=== PATIENT | female | born 1980 | race Caucasian/White ===

== ENCOUNTER 2016-07-13 18:44 | Emergency (ER) | payer OTHER ==
[~2016-07-13] VITALS: Ht 157.5 cm; Wt 59.0 kg
[2016-07-13] MEDS ORDERED: KETOROLAC 60 MG/2 ML VIAL (J1885) IM ONE (19:45)
[2016-07-13 20:09] LABS: BASO # 0.1 K/mm3 (0.0-0.2); BASO % 0.7 % (0.0-1.0); EOS # 0.3 K/mm3 (0.0-0.50); EOS % 3.6 % (0.0-3.0); LARGE UNSTAINED CELL # 0.1 K/mm3 (0.0-0.4); LARGE UNSTAINED CELL % 1.8 % (0.0-4.0); LYMPH # 3.5 K/mm3 (1.5-4.5); LYMPH % 42.2 % (24.0-44.0); MEAN CORPUSCULAR HEMOGLOBIN 29.3 pg (27.0-33.0); MEAN CORPUSCULAR HGB CONC 32.9 g/dl (32.0-36.5); MEAN CORPUSCULAR VOLUME 88.9 fl (80.0-96.0); MONO # 0.3 K/mm3 (0.0-0.8); MONO % 4.1 % (0.0-5.0); NEUTROPHILS # 3.8 K/mm3 (1.8-7.7); NEUTROPHILS % 47.5 % (36.0-66.0); PLATELET COUNT, AUTOMATED 246 k/mm3 (150-450); RED CELL DISTRIBUTION WIDTH 14.6 % (11.5-14.5); WHITE BLOOD COUNT 7.9 K/mm3 (4.0-10.0)
[2016-07-13 20:34] LABS: CONTROL LINE HCG INT CTR LINE PRESENT
[2016-07-13] MEDS ORDERED: NORCO, ANEXSIA 5/325MG TABLET (HYDROcodone/ACETAMINOPHEN) PO ONE (21:15)
[2016-07-13 21:23] VITALS: BP 114/69
== END 2016-07-13 21:26 | disposition home or self-care (01) ==
LOC: M ED 19:41
DX: N94.6 Dysmenorrhea, unspecified (principal); N80.9 Endometriosis, unspecified; F17.210 Nicotine dependence, cigarettes, uncomplicated
CPT/HCPCS: 36415; 84703; 85025; 96372; 99282; J1885

== ENCOUNTER 2016-09-11 00:17 | Emergency (ER) | payer OTHER ==
[~2016-09-11] VITALS: Ht 157.5 cm; Wt 58.2 kg
[2016-09-11] MEDS ORDERED: PERCOCET 5MG/325MG TAB PO ONE (04:30)
[2016-09-11 04:42] VITALS: BP 114/84
--- NOTE | 2016-09-11 07:40 | REP ---
Clinical: Trauma. Technique: AP, lateral, bilateral oblique views right foot . Findings: The osseous structures and joint spaces are intact and normal. There is no evidence for acute fracture or dislocation. Surrounding soft tissues are unremarkable. No subcutaneous emphysema or radiodense foreign body. Impression: Age appropriate examination . No acute fracture or dislocation. Signed by Myron Mccullough MD 09/11/2016 07:32 A
[2016-10-18] MEDS ORDERED: IBUP200C10 PO (13:51)
== END 2016-09-11 04:44 | disposition home or self-care (01) ==
LOC: M ED 01:34
DX: S90.31XA Contusion of right foot, initial encounter (principal); V03.10XA Pedestrian on foot injured in collision with car, pick-up truck or van in traffic accident, initial encounter; Y92.410 Unspecified street and highway as the place of occurrence of the external cause; Y93.01 Activity, walking, marching and hiking; Y99.9 Unspecified external cause status

== ENCOUNTER 2016-10-23 05:58 | Inpatient (IN) | payer OTHER ==
[2016-10-23] VITALS (7 sets, daily range): BP systolic 96–113; BP diastolic 60–73
[~2016-10-23] VITALS: Ht 157.5 cm; Wt 59.4 kg
[~2016-10-23 05:58] MED LIST: IBUP200C10 PO
[2016-10-23] MEDS ORDERED: LR 1,000 ML IV SCH (06:15)
[2016-10-23 06:27] LABS: MEAN CORPUSCULAR HEMOGLOBIN 29.4 pg (27.0-33.0); MEAN CORPUSCULAR HGB CONC 33.5 g/dl (32.0-36.5); MEAN CORPUSCULAR VOLUME 87.7 fl (80.0-96.0); WHITE BLOOD COUNT 11.1 K/mm3 (4.0-10.0)
[2016-10-23 06:46] LABS: CONTROL LINE HCG INT CTR LINE PRESENT
[2016-10-23] MEDS ORDERED: BUPIVACAINE HCL 0.5% 30 ML VIAL As Ordered ONE ×2 (07:13→10:15)
[2016-10-23] MEDS ORDERED: fentaNYL 250 MCG/5 ML INJECTION (J3010) As Ordered ONE (07:17)
[2016-10-23] MEDS ORDERED: MIDAZOLAM INJ 2 MG/2 ML VIAL (J2250) As Ordered ONE (07:18)
[2016-10-23] MEDS ORDERED: dexameTHASONE 4 MG/ML 1ML VIAL (J1100) As Ordered ONE (09:34)
[2016-10-23] MEDS ORDERED: PROPOFOL 200 MG/20 ML VIAL As Ordered ONE (09:34)
[2016-10-23] MEDS ORDERED: KETOROLAC 60 MG/2 ML VIAL (J1885) As Ordered ONE (09:34)
[2016-10-23] MEDS ORDERED: ONDANSETRON 4MG/2ML VIAL (J2405) As Ordered ONE (09:34)
[2016-10-23] MEDS ORDERED: LIDOCAINE 2% INJ 100 MG/5 ML SDV (FOR ANES.) As Ordered ONE (09:34)
[2016-10-23] MEDS ORDERED: GLYCOPYRROLATE INJ 0.2 MG/ML 2 ML VIAL As Ordered ONE (09:34)
[2016-10-23] MEDS ORDERED: NEOSTIGMINE 1MG/ML 5 ML SYRINGE (J2710) As Ordered ONE (09:34)
[2016-10-23] MEDS ORDERED: ROCURONIUM BROMIDE 50 MG/5 ML VIAL/SYRINGE As Ordered ONE (09:34)
[2016-10-23] MEDS ORDERED: PERCOCET 5MG/325MG TAB PO PRN ×2 (13:00→13:30)
[2016-10-23] MEDS ORDERED: ONDANSETRON 4MG/2ML VIAL (J2405) IV PRN ×2 (13:00→13:30)
[2016-10-23] MEDS ORDERED: fentaNYL 100 MCG/2 ML INJECTION (J3010) As Ordered ONE (13:11)
[2016-10-23] MEDS: fentaNYL 100 MCG/2 ML INJECTION (J3010) IV PRN ×2 (13:15→13:21)
[2016-10-23] MEDS: LR 1,000 ML IV SCH ×2 (14:35→21:12)
[2016-10-23] MEDS: KETOROLAC 30 MG/ML VIAL (J1885) IV SCH ×2 (14:53→19:02)
[2016-10-23] MEDS: DOCUSATE SODIUM 100 MG CAP PO SCH ×2 (14:53→21:12)
[2016-10-23] MEDS: NICOTINE 21MG/24HR 1 EA TRANSDERMAL TD SCH (19:02)
[2016-10-23] MEDS: PERCOCET 5MG/325MG TAB PO PRN (21:38)
[2016-10-24] VITALS: BP 91/54
[2016-10-24] MEDS: KETOROLAC 30 MG/ML VIAL (J1885) IV SCH ×2 (01:06→06:48)
[2016-10-24 04:00] VITALS: BP 92/62
[2016-10-24] MEDS: PERCOCET 5MG/325MG TAB PO PRN ×4 (04:35→17:38)
[2016-10-24] MEDS: LR 1,000 ML IV SCH ×2 (05:00→13:02)
[2016-10-24 07:51] LABS: MEAN CORPUSCULAR HEMOGLOBIN 29.7 pg (27.0-33.0); MEAN CORPUSCULAR HGB CONC 33.3 g/dl (32.0-36.5); MEAN CORPUSCULAR VOLUME 89.3 fl (80.0-96.0); PLATELET COUNT, AUTOMATED 163 k/mm3 (150-450); RED CELL DISTRIBUTION WIDTH 14.9 % (11.5-14.5); WHITE BLOOD COUNT 9.1 K/mm3 (4.0-10.0)
[2016-10-24 07:57] LABS: ADD MANUAL DIFFER YES; DIFF SLIDE NUMBER 92
[2016-10-24 08:00] VITALS: BP 110/70
[2016-10-24 08:13] LABS: EOSINOPHILS 2 % (0-5)
[2016-10-24] MEDS: NICOTINE 21MG/24HR 1 EA TRANSDERMAL TD SCH (08:36)
[2016-10-24] MEDS: DOCUSATE SODIUM 100 MG CAP PO SCH (08:36)
[2016-10-24 12:00] VITALS: BP 93/61
[2016-10-24] MEDS ORDERED: IBUPROFEN 800 MG TAB PO SCH (15:00)
[2016-10-24 16:00] VITALS: BP 114/73
--- NOTE | 2016-10-24 19:00 | DS.PDOC ---
Discharge Summary General Date of Admission Oct 23, 2016 at 05:58 Date of Discharge [id number] Discharge Summary PROCEDURES PERFORMED DURING STAY: Total laparoscopic hysterectomy, bilateral salpingectomy, cystoscopy ADMITTING DIAGNOSIS: 1. Dysmenorrhea, menorrhagia DISCHARGE DIAGNOSES: 1. as above HOSPITAL COURSE: Admitted for procedures as above. Uncomplicated, see op note. DISCHARGE MEDICATIONS: Motrin, Percocet, Colace Physical exam: see prog note LABORATORY DATA: Please see below. ACTIVITY: as tolerated. Nothing in vagina for 12 weeks, no heavy lifting for 6 weeks, no bathing for 4 weeks. DIET: regular DISPOSITION:stable TIME SPENT ON DISCHARGE: Greater than 15 minutes. Sessions Vital Signs/I&Os Vital Signs Date Time Temp Pulse Resp B/P (MAP) Pulse Ox O2 Delivery O2 Flow Rate FiO2 10/24/16 17:38 18 10/24/16 16:00 98.0 74 114/73 (87) 98 Room Air 10/24/16 04:00 2.0 I&O- Last 24 Hours up to 6 AM 10/24/16 06:00 Intake Total 3050 ml Output Total 2700 ml Balance 350 ml Laboratory Data Labs 24H Laboratory Tests 2 10/24/16 07:07: Neutrophils 60, Lymphocytes (Manual) 38, Eosinophils (Manual) 2, Platelet Estimate NORMAL CBC/BMP Laboratory Tests 10/24/16 07:07 Red Blood Count 3.28 L, Mean Corpuscular Volume 89.3, Mean Corpuscular Hemoglobin 29.7, Mean Corpuscular Hemoglobin Concent 33.3, Red Cell Distribution Width 14.9 H Discharge Medications Scheduled PRN Ibuprofen (Ibuprofen) 200 Mg Cap, 800 MG PO Q8HP PRN for PAIN, (Reported) Allergies Coded Allergies: No Known Allergies (Unverified , 07/13/16) SESSIONSPATRICIA MD Oct 24, 2016 19:00
--- NOTE | 2016-10-24 19:03 | IPNPDOC ---
Text Note Date of Service The patient was seen on 10/24/16. NOTE Tried to see pt this AM, was asleep. Pt states pain controlled, desires to go home, no complaints. Small amt vag spotting earlier. No CP/LP/SOB. Ambulatory, eating. [employer] CDI Ext no CCE This AM HCT 29.3, PLT 162 a/p: Doing well. D/C lines and d/c to home. Sessions Vivian HOFFMANN, I+O VSVivian I+O Laboratory Tests 10/24/16 07:07 Red Blood Count 3.28 L, Mean Corpuscular Volume 89.3, Mean Corpuscular Hemoglobin 29.7, Mean Corpuscular Hemoglobin Concent 33.3, Red Cell Distribution Width 14.9 H Vital Signs Date Time Temp Pulse Resp B/P (MAP) Pulse Ox O2 Delivery O2 Flow Rate FiO2 10/24/16 17:38 18 10/24/16 16:00 98.0 74 114/73 (87) 98 Room Air 10/24/16 04:00 2.0 I&O- Last 24 Hours up to 6 AM 10/24/16 06:00 Intake Total 3050 ml Output Total 2700 ml Balance 350 ml SESSIONS,PATRICIA Rivera MD Oct 24, 2016 19:02
[2016-10-24] MEDS ORDERED: OXYC1TAB23 PO ×2 (19:42→19:43)
[2016-10-24] MEDS ORDERED: COLA100C5 PO (19:43)
[2016-10-24 20:00] VITALS: BP 116/59
--- NOTE | 2016-10-25 13:56 | RO ---
DATE OF PROCEDURE: 10/23/2016 PREPROCEDURE DIAGNOSES: Symptomatic uterus with menorrhagia and dysmenorrhea. POSTPROCEDURE DIAGNOSES: Symptomatic uterus with menorrhagia and dysmenorrhea. PROCEDURE: PREOPERATIVE ANTIBIOTICS: Ancef 2 grams IV SURGEON: Tamir Gaona MD AUTO CLEANER: Dr. Ayoub FINDINGS: Slightly enlarged uterus, irritated and injected, normal ovaries and tubes, minor scar tissue from prior section times two. ANESTHESIA: General endotracheal. ESTIMATED BLOOD LOSS: 100 mL. DRAINS: 600 mL of clear urine in the Dunlap catheter. FLUIDS REPLACED: 1500 mL of lactated Ringers. SPECIMENS: Bilateral tubes, cervix, uterus. INDICATION: Please see preoperative diagnosis. DESCRIPTION OF PROCEDURE: The patient was taken to the operating room with an IV in place after her type and screen was found to have positive antibodies for Angelique. We confirmed with the blood bank that they did in fact have blood that was compatible should we need to transfuse the patient, either intra or postoperatively. Informed consent had previously been obtained in the clinic after several visits. The patient had an uncomplicated induction of anesthesia and was placed in the low lithotomy position without difficulty by myself. Examination under anesthesia was then performed. She was then prepped and draped in the normal sterile fashion and I placed a speculum into the vagina, isolating the cervix, grasped the anterior lip of the cervix with the tenaculum, placed a figure of eight suture at the anterior lip, passed the suture ends through the green cervical cup of the VCare uterine manipulator. Advanced the VCare uterine manipulator to the fundus and insufflated the bulb and removed the speculum. The green cervical cup from the VCare was then advanced to completely encompass the cervix. The blue cup behind the green cup was tightened in place. I then changed my gloves and turned my attention to the lower abdomen. The patient was flattened out and brought down to waist level. I injected a few mL of 0.5% Marcaine with no epinephrine just under the umbilicus and placed a 5 mm Optiview Trocar directly into the abdomen under direct visualization. Intraperitoneal placement was easily confirmed with low flow carbon dioxide insufflation. The patient was placed in Trendelenburg and high flow CO2 was started. Using the VCare uterine manipulator, a thorough lower abdominal and upper abdominal survey was performed and all was normal other than findings as described above. We placed the left lower quadrant and right lower quadrant 5 mm trocars in the exact same manner only this time under direct visualization with camera. The patient had a tubal ligation with her prior deliveries. Therefore, the distal part of the fallopian tube was elevated and transected using the LigaSure. Each fallopian tube was placed into the anterior cul-de- sac. We then cauterized with LigaSure just underneath the proximal portion of the left sided fallopian tube to the side of the uterus and then down the utero-ovarian ligament down to the layer of the cervical cup on the uterine manipulator. This was repeated on the patient's right in exactly the same fashion. There was never a significant amount of bleeding, although a few small serosal bleeds and one arterial bleed was noted, but easily addressed. Using the Harmonic scalpel we then went from left side to the right side and created a bladder flap without difficulty. At this point, a colpotomy on the left side was created with Harmonic scalpel and we were able to find the green cervical cup. Most of the left vaginal attachment was transected around the cervix, at which point we began to lose insufflation so a Surgilube covered glove with a blue towel stuffed inside was placed into the vagina to maintain our pneumoperitoneum. We then switched to the opposite side and the rest of the anterior right sided and posterior colpotomy was performed. The uterus was then removed intact through the vaginal incision with the uterine manipulator still attached. With the patient maintained in Trendelenburg and the use of a sponge stick and right angle retractor and weighted speculum, I was able to identify the vaginal cuff completely and with a running suture of #0 Vicryl in a locked fashion from right to midline and then with the second suture from the left to the midline, the vaginal cuff was closed without difficulty. Sutures were joined in the midline. A small amount of cautery was used to prevent future granulation. There was excellent union of the vaginal cuff edges across the closure. The abdomen was reinsufflated by my partner, Dr. Ayoub, and she inspected the vaginal cuff and found it to be hemostatic and in good shape. We identified bilateral ureters and watched them vermiculate bilaterally. Camera was then changed and I placed the cystoscope into the bladder, insufflated with approximately 200 mL and then watched as both ureteral orifices contracted and injected urine into the bladder. Normal bladder dome bubble was noted. There was never fear of a cystotomy and there was no evidence of a ureteral injury. All instruments were removed from the vagina. All trocars were removed from the abdominal wall after as much desufflation of the CO2 gas was able to escape was possible. The patient was awakened from her surgery in stable condition. All counts of instruments, needles and sponges were correct at the end of the case. FRANCISCO
== END 2016-10-24 20:10 | disposition home or self-care (01) | DRG 743 ==
LOC: M OR 05:58 → M PED 14:22
PROVIDERS: ADMIT Obstetrics & Gynecology; ATTEND Obstetrics & Gynecology
PROC: 0UTC8ZZ Resection of Cervix, Via Natural or Artificial Opening Endoscopic (ICD-10-PCS; 2016-10-23)
PROC: 0UT7FZZ Resection of Bilateral Fallopian Tubes, Via Natural or Artificial Opening With Percutaneous Endoscopic Assistance (ICD-10-PCS; 2016-10-23)
PROC: 0UT9FZZ Resection of Uterus, Via Natural or Artificial Opening With Percutaneous Endoscopic Assistance (ICD-10-PCS; principal; 2016-10-23 07:30)
DX: N94.6 Dysmenorrhea, unspecified (principal); N92.0 Excessive and frequent menstruation with regular cycle; Z98.51 Tubal ligation status

== ENCOUNTER 2016-10-28 15:13 | Emergency (ER) | payer OTHER ==
[~2016-10-28] VITALS: Ht 157.5 cm; Wt 58.7 kg
[~2016-10-28 15:13] MED LIST changes: +COLA100C5 PO; +OXYC1TAB23 PO
[2016-10-28] MEDS ORDERED: NS 1,000 ML IV ONE (16:45)
[2016-10-28] MEDS ORDERED: ONDANSETRON 4MG/2ML VIAL (J2405) IV ONE (16:45)
[2016-10-28] MEDS ORDERED: GASTROGRAFIN SOLUTION 30ML PO ONE (17:05)
[2016-10-28] MEDS ORDERED: GASTROGRAFIN SOLUTION 30ML (Q9963) PO ONE (17:35)
[2016-10-28 17:40] LABS: BASO % 0.3 % (0.0-1.0); EOS # 0.3 K/mm3 (0.0-0.50); EOS % 2.2 % (0.0-3.0); LARGE UNSTAINED CELL # 0.1 K/mm3 (0.0-0.4); LYMPH # 1.5 K/mm3 (1.5-4.5); LYMPH % 12.5 % (24.0-44.0); MEAN CORPUSCULAR HEMOGLOBIN 29.1 pg (27.0-33.0); MEAN CORPUSCULAR HGB CONC 32.9 g/dl (32.0-36.5); MEAN CORPUSCULAR VOLUME 88.5 fl (80.0-96.0); MONO # 0.7 K/mm3 (0.0-0.8); MONO % 6.1 % (0.0-5.0); NEUTROPHILS # 9.3 K/mm3 (1.8-7.7); NEUTROPHILS % 77.8 % (36.0-66.0); PLATELET COUNT, AUTOMATED 253 k/mm3 (150-450); RED CELL DISTRIBUTION WIDTH 14.7 % (11.5-14.5); WHITE BLOOD COUNT 11.9 K/mm3 (4.0-10.0)
[2016-10-28] MEDS: MORPHINE 2 MG/ML 1ML SYRINGE IV PRN ×2 (17:40→18:08)
[2016-10-28 18:04] LABS: ANION GAP 8 MEQ/L (8-16); BLOOD UREA NITROGEN 6 MG/DL (7-18); CALCIUM LEVEL 9.1 MG/DL (8.5-10.1); CARBON DIOXIDE LEVEL 25 MEQ/L (21-32); CHLORIDE LEVEL 109 MEQ/L (98-107); CREATININE FOR GFR 0.61 MG/DL (0.55-1.02); GLOMERULAR FILTRATION RATE > 60.0 (>60); GLUCOSE, FASTING 89 MG/DL (70-105); POTASSIUM SERUM 4.5 MEQ/L (3.5-5.1); SODIUM LEVEL 142 MEQ/L (136-145)
[2016-10-28] MEDS ORDERED: ISOVUE-370 76% 100ML VIAL (Q9967) As Ordered ONE (18:54)
--- NOTE | 2016-10-28 19:30 | REPUSA ---
CT of the abdomen and pelvis with contrast Clinical statement: Pain. Evaluate for abscess. Technique: Multiple axial CT images were obtained from the base of the lungs through the floor of the pelvis utilizing 5 mm axial slices after administration of oral and nonionic intravenous contrast. C oronal and sagittal reconstructions were also obtained. Comparison: None. Findings: Chest: The visualized lung bases are clear. Abdomen: The liver, spleen, pancreas, kidneys, gallbladder, and adrenal glands are unremarkable. The aorta is within normal limits. There is no evidence of abdominal lymphadenopathy or ascites. Pelvis: The bowel is unremarkable, with no obstructive or inflammatory changes. Moderate amount of st ool fills the colon. The urinary bladder is within normal limits. The other pelvic structures appear grossly intact. There is no evidence of pelvic lymphadenopathy or ascites. Bones: There are no suspicious osseous abnormalities seen. Impression: Moderate constipation. Otherwise unremarkable study.
[2016-10-28] MEDS ORDERED: MAGNESIUM CITRATE 300 ML BTL PO ONE (20:30)
[2016-10-28 20:50] VITALS: BP 111/74
== END 2016-10-28 20:54 | disposition home or self-care (01) ==
LOC: M ED 15:13
DX: K59.00 Constipation, unspecified (principal); Z72.0 Tobacco use
CPT/HCPCS: 74177; 80048; 81001; 83605; 85025; 96374; 96375; 99283; J2405; Q9963; Q9967

== ENCOUNTER 2016-10-30 17:14 | Emergency (ER) | payer OTHER ==
[~2016-10-30] VITALS: Ht 157.5 cm; Wt 59.1 kg
[2016-10-30] MEDS ORDERED: TYLE325T5 PO (17:23)
[2016-10-30] MEDS ORDERED: MORPHINE 2 MG/ML 1ML SYRINGE IV PRN (18:15)
[2016-10-30] MEDS ORDERED: NS 1,000 ML IV ONE (18:15)
[2016-10-30] MEDS ORDERED: ONDANSETRON 4MG/2ML VIAL (J2405) IV ONE (18:15)
[2016-10-30 19:04] LABS: BASO % 0.5 % (0.0-1.0); EOS # 0.3 K/mm3 (0.0-0.50); EOS % 3.8 % (0.0-3.0); LARGE UNSTAINED CELL # 0.1 K/mm3 (0.0-0.4); LARGE UNSTAINED CELL % 1.4 % (0.0-4.0); LYMPH # 2.2 K/mm3 (1.5-4.5); LYMPH % 24.9 % (24.0-44.0); MEAN CORPUSCULAR HEMOGLOBIN 29.5 pg (27.0-33.0); MEAN CORPUSCULAR HGB CONC 33.3 g/dl (32.0-36.5); MEAN CORPUSCULAR VOLUME 88.7 fl (80.0-96.0); MONO # 0.5 K/mm3 (0.0-0.8); MONO % 5.6 % (0.0-5.0); NEUTROPHILS # 5.7 K/mm3 (1.8-7.7); NEUTROPHILS % 63.8 % (36.0-66.0); PLATELET COUNT, AUTOMATED 360 k/mm3 (150-450); RED CELL DISTRIBUTION WIDTH 14.1 % (11.5-14.5); WHITE BLOOD COUNT 8.9 K/mm3 (4.0-10.0)
[2016-10-30 19:20] LABS: ALBUMIN 3.9 GM/DL (3.2-5.2); ALBUMIN/GLOBULIN RATIO 1.03 (1.00-1.93); ALKALINE PHOSPHATASE 67 U/L (45-117); ALT/SGPT 17 U/L (12-78); ANION GAP 7 MEQ/L (8-16); AST/SGOT 12 U/L (15-37); BILIRUBIN,DIRECT < 0.1 MG/DL (0.0-0.2); BILIRUBIN,TOTAL 0.2 MG/DL (0.2-1.0); BLOOD UREA NITROGEN 9 MG/DL (7-18); CALCIUM LEVEL 9.2 MG/DL (8.5-10.1); CARBON DIOXIDE LEVEL 27 MEQ/L (21-32); CHLORIDE LEVEL 107 MEQ/L (98-107); GLOMERULAR FILTRATION RATE > 60.0 (>60); GLUCOSE, FASTING 85 MG/DL (70-105); POTASSIUM SERUM 4.6 MEQ/L (3.5-5.1); SODIUM LEVEL 141 MEQ/L (136-145); TOTAL PROTEIN 7.7 GM/DL (6.4-8.2)
[2016-10-30 20:25] VITALS: BP 126/80
== END 2016-10-30 20:30 | disposition home or self-care (01) ==
LOC: M ED 17:14
DX: R10.84 Generalized abdominal pain (principal); Z72.0 Tobacco use
CPT/HCPCS: 80048; 80076; 81001; 83605; 83690; 85025; 96361; 96374; 96375; 99283; J2405

== ENCOUNTER 2017-01-28 18:13 | Emergency (ER) | payer OTHER ==
[~2017-01-28] VITALS: Ht 157.5 cm; Wt 61.4 kg
[~2017-01-28 18:13] MED LIST changes: +TYLE325T5 PO
[2017-01-28] MEDS ORDERED: NS 1,000 ML IV ONE (20:00)
[2017-01-28 20:19] LABS: BASO # 0.1 10^3/uL (0.0-0.2); BASO % 0.8 % (0.0-1.0); EOS # 0.4 10^3/uL (0.0-0.50); EOS % 4.1 % (0.0-3.0); IMMATURE GRANULOCYTE % 0.3 % (0-0); LYMPH # 3.6 10^3/uL (1.5-4.5); MEAN CORPUSCULAR HEMOGLOBIN 28.7 pg (27.0-33.0); MEAN CORPUSCULAR HGB CONC 33.2 g/dl (32.0-36.5); MEAN CORPUSCULAR VOLUME 86.5 fl (80.0-96.0); MONO # 0.5 10^3/uL (0.0-0.8); MONO % 5.1 % (0.0-5.0); NEUTROPHILS # 5.3 10^3/uL (1.8-7.7); NEUTROPHILS % 53.7 % (36.0-66.0); PLATELET COUNT, AUTOMATED 230 10^3/uL (150-450); RED CELL DISTRIBUTION WIDTH 15.4 % (11.5-14.5); WHITE BLOOD COUNT 9.9 10^3/uL (4.0-10.0)
[2017-01-28 20:45] LABS: ANION GAP 5 MEQ/L (8-16); BLOOD UREA NITROGEN 5 MG/DL (7-18); CALCIUM LEVEL 8.9 MG/DL (8.5-10.1); CARBON DIOXIDE LEVEL 28 MEQ/L (21-32); CHLORIDE LEVEL 108 MEQ/L (98-107); CREATININE FOR GFR 0.56 MG/DL (0.55-1.02); GLOMERULAR FILTRATION RATE > 60.0 (>60); GLUCOSE, FASTING 88 MG/DL (70-105); POTASSIUM SERUM 4.1 MEQ/L (3.5-5.1); SODIUM LEVEL 141 MEQ/L (136-145)
[2017-01-28] MEDS ORDERED: MORPHINE 2 MG/ML 1ML SYRINGE IV ONE (20:45)
[2017-01-28] MEDS ORDERED: ONDANSETRON 4MG/2ML VIAL (J2405) IV ONE (20:45)
--- NOTE | 2017-01-28 21:50 | REPUSA ---
Clinical history: Pain. Findings: Real-time transabdominal and transvaginal ultrasound images of the pelvis were obtained. Th e patient is status post hysterectomy. The right ovary measures 3.3 x 1.9 x 2.3 cm. The left ovary me asures 3.3 x 2.2 x 3.4 cm. There is a simple left ovarian cyst measuring 1.7 x 1.5 x 1.9 cm. No adnex al masses are seen. Color Doppler flow is seen within both ovaries. There is no evidence of free flui d. The urinary bladder measures 4.1 x 1.7 x 5.2 cm, and is unremarkable. Impression: Simple left ovarian cyst.
--- NOTE | 2017-01-29 00:30 | REPUSA ---
CLINICAL HISTORY: Abdominal pain. TECHNIQUE: Multiple axial, sagittal and coronal CT images were obtained through the abdomen and pelvi s without administration of oral or IV contrast material. COMMENTS: Comparison is made to prior exam on 10/28/2016. The liver is of uniform attenuation without mass or defect. There is no intra or extrahepatic biliary ductal dilatation. The spleen is normal. The gallbladder is within normal limits. The pancreas is of normal contour and attenuation characteristics. There is no evidence of adrenal mass. 3 mm right left renal nonobstructing stone. The kidneys are normal in size, shape and configuration. No right renal or ureteral calculi are ident ified. There is no hydroureter or hydronephrosis. There is no evidence for appendicitis. No evidence for small or large bowel obstruction. There is no evidence of abdominal ascites or lympha denopathy. There is no evidence of intrinsic or extrinsic bladder mass. There is no pelvic ascites or lymphadeno danuta. Diffusely thickened proximal small bowel loops. Images of the lung bases show no evidence of pleural or parenchymal mass. There are no pleural effusi ons. The bony structures are free of lytic or blastic lesions. IMPRESSION: Nonobstructing left nephrolithiasis. Mild thickening of the proximal small bowel loops. Underdistention versus mild enteritis. Thank you for your kind referral of this patient.
[2017-01-29] MEDS ORDERED: BACT800T5 PO (00:41)
[2017-01-29 00:50] VITALS: BP 123/85
== END 2017-01-29 01:01 | disposition home or self-care (01) ==
LOC: M ED 18:13
DX: N39.0 Urinary tract infection, site not specified (principal); N20.0 Calculus of kidney; N83.202 Unspecified ovarian cyst, left side; N80.9 Endometriosis, unspecified; F17.210 Nicotine dependence, cigarettes, uncomplicated
CPT/HCPCS: 74176; 76830; 76856; 80048; 81001; 85025; 93976; 96361; 96374; 96375; 99284; J2405

== ENCOUNTER 2017-12-30 22:28 | Inpatient (IN) | payer OTHER ==
[2017-12-30 23:00] LABS: HEMATOCRIT 42.6 % (36.0-47.0); HEMOGLOBIN 14.9 g/dl (12.0-15.5); MEAN CORPUSCULAR VOLUME 94.5 fl (80.0-96.0); PLATELET COUNT, AUTOMATED 234 10^3/uL (150-450); RED BLOOD COUNT 4.51 10^6/uL (4.00-5.40); RED CELL DISTRIBUTION WIDTH 11.8 % (11.5-14.5)
[2017-12-30 23:18] LABS: CONTROL LINE HCG INT CTR LINE PRESENT; HCG, SERUM QUALITATIVE NEGATIVE (NEGATIVE)
[2017-12-30 23:32] LABS: AMPHETAMINES LEVEL URINE NEGATIVE (NEGATIVE); BARBITURATES URINE NEGATIVE (NEGATIVE); BENZODIAZEPINES URINE NEGATIVE (NEGATIVE); CANNABINOIDS URINE POSITIVE (NEGATIVE); COCAINE METABOLITE URINE NEGATIVE (NEGATIVE); METHADONE URINE NEGATIVE (NEGATIVE); OPIATES URINE NEGATIVE (NEGATIVE); PHENCYCLIDINE URINE NEGATIVE (NEGATIVE)
[2017-12-30 23:33] LABS: ACETAMINOPHEN LEVEL < 2.0 UG/ML (10.0-30.0); ALBUMIN 3.9 GM/DL (3.2-5.2); ALBUMIN/GLOBULIN RATIO 1.22 (1.00-1.93); ALKALINE PHOSPHATASE 65 U/L (45-117); ALT/SGPT 17 U/L (12-78); ANION GAP 7 MEQ/L (8-16); AST/SGOT 17 U/L (7-37); BILIRUBIN,DIRECT < 0.1 MG/DL (0.0-0.2); BILIRUBIN,TOTAL 0.2 MG/DL (0.2-1.0); BLOOD UREA NITROGEN 5 MG/DL (7-18); CALCIUM LEVEL 8.7 MG/DL (8.5-10.1); CARBON DIOXIDE LEVEL 26 MEQ/L (21-32); CHLORIDE LEVEL 110 MEQ/L (98-107); CREATININE FOR GFR 0.59 MG/DL (0.55-1.30); ETHYL ALCOHOL (ETHANOL) 0.182 % (0.000-0.010); GLOMERULAR FILTRATION RATE > 60.0 (>60); GLUCOSE, FASTING 100 MG/DL (70-100); POTASSIUM SERUM 3.7 MEQ/L (3.5-5.1); SALICYLATE LEVEL 3.2 MG/DL (5.0-30.0); SODIUM LEVEL 143 MEQ/L (136-145); TOTAL PROTEIN 7.1 GM/DL (6.4-8.2)
[2017-12-31 00:11] LABS: GOLD SPEC TUBE RECIEVED
[2017-12-31] MEDS: PROMETHAZINE INJ 25 MG/ML VIAL (J2550) IM (03:15)
[2017-12-31] MEDS ORDERED: MOM 30ML SUSPENSION UDC PO (16:45)
[2017-12-31] MEDS ORDERED: MAALOX 30 ML SUSP *UDC PO (16:45)
[2017-12-31] MEDS ORDERED: LORazepam 2 MG TAB PO (16:45)
[2017-12-31] MEDS: THIAMINE 100 MG TAB PO (21:21)
[2018-01-01] MEDS: THIAMINE 100 MG TAB PO ×2 (08:15→20:44)
[2018-01-01] MEDS: MULTIVITAMINS/MINERALS THERAP 1 TAB PO (08:15)
[2018-01-01] MEDS: FOLIC ACID 1 MG TAB PO (08:15)
[2018-01-01] MEDS: ACETAMINOPHEN TAB 650MG DOSE (2X325MG) PO (08:16)
[2018-01-01] MEDS: NICOTINE 21MG/24HR 1 EA TRANSDERMAL TD (08:16)
[2018-01-01] MEDS: ARIPiprazole 2 MG TAB PO ×2 (12:45→20:44)
[2018-01-01] MEDS: traZODone 50 MG TAB PO (20:44)
[2018-01-01] MEDS: OLANZapine ORAL DISINTEGRATING TAB 5MG PO (20:44)
[2018-01-02] MEDS: NICOTINE 21MG/24HR 1 EA TRANSDERMAL TD (08:15)
[2018-01-02] MEDS: FOLIC ACID 1 MG TAB PO (08:15)
[2018-01-02] MEDS: ARIPiprazole 2 MG TAB PO (08:15)
[2018-01-02] MEDS: THIAMINE 100 MG TAB PO ×2 (08:15→20:26)
[2018-01-02] MEDS: MULTIVITAMINS/MINERALS THERAP 1 TAB PO (08:15)
[2018-01-02] MEDS: OLANZapine ORAL DISINTEGRATING TAB 5MG PO (08:17)
[2018-01-02 09:05] LABS: FREE THYROXINE INDEX 2.2 % (1.3-4.8); T UPTAKE 31 % (30-39)
[2018-01-02] MEDS: ACETAMINOPHEN TAB 650MG DOSE (2X325MG) PO (09:32)
[2018-01-02] MEDS: ESCITALOPRAM OXALATE 10 MG TAB (LEXAPRO) PO (12:29)
[2018-01-02] MEDS: traZODone 50 MG TAB PO (20:26)
[2018-01-02] MEDS: PILL CRUSHER/CUTTER 1 EACH XX (21:47)
[2018-01-03] MEDS: ESCITALOPRAM OXALATE 10 MG TAB (LEXAPRO) PO (08:02)
[2018-01-03] MEDS: FOLIC ACID 1 MG TAB PO (08:03)
[2018-01-03] MEDS: NICOTINE 21MG/24HR 1 EA TRANSDERMAL TD (08:03)
[2018-01-03] MEDS: MULTIVITAMINS/MINERALS THERAP 1 TAB PO (08:03)
[2018-01-03] MEDS: THIAMINE 100 MG TAB PO (08:03)
[2018-01-03] MEDS: ACETAMINOPHEN TAB 650MG DOSE (2X325MG) PO (08:03)
[2018-01-03] MEDS: OLANZapine ORAL DISINTEGRATING TAB 5MG PO (20:26)
[2018-01-03] MEDS: traZODone 50 MG TAB PO (21:07)
[2018-01-04] MEDS: FOLIC ACID 1 MG TAB PO (08:25)
[2018-01-04] MEDS: NICOTINE 21MG/24HR 1 EA TRANSDERMAL TD (08:25)
[2018-01-04] MEDS: ESCITALOPRAM OXALATE 10 MG TAB (LEXAPRO) PO (08:25)
[2018-01-04] MEDS: MULTIVITAMINS/MINERALS THERAP 1 TAB PO (08:25)
[2018-01-04] MEDS: OLANZapine ORAL DISINTEGRATING TAB 5MG PO (11:11)
[2018-01-04] MEDS: traZODone 50 MG TAB PO (20:26)
[2018-01-05] MEDS: PILL CRUSHER/CUTTER 1 EACH XX (08:12)
[2018-01-05] MEDS: ESCITALOPRAM OXALATE 10 MG TAB (LEXAPRO) PO (08:13)
[2018-01-05] MEDS: OLANZapine ORAL DISINTEGRATING TAB 5MG PO (08:13)
[2018-01-05] MEDS: NICOTINE 21MG/24HR 1 EA TRANSDERMAL TD (08:13)
[2018-01-05] MEDS: MULTIVITAMINS/MINERALS THERAP 1 TAB PO (08:13)
[2018-01-05] MEDS: FOLIC ACID 1 MG TAB PO (08:13)
[2018-01-05] MEDS: ACETAMINOPHEN TAB 650MG DOSE (2X325MG) PO (11:28)
[2018-01-06] MEDS ORDERED: ESCITALOPRAM OXALATE 5MG TABLET (LEXAPRO) PO (09:00)
== END 2018-01-05 13:40 | disposition home or self-care (01) | DRG 885 ==
LOC: M ED 22:28 → M PSY 01-01 14:45 → M ED INP 12-31 16:42 → M PSY 12-31 18:10
DX: F33.9 Major depressive disorder, recurrent, unspecified (principal); F10.14 Alcohol abuse with alcohol-induced mood disorder; R45.851 Suicidal ideations; F41.1 Generalized anxiety disorder; S00.11XA Contusion of right eyelid and periocular area, initial encounter; R94.6 Abnormal results of thyroid function studies; F43.10 Post-traumatic stress disorder, unspecified; F17.210 Nicotine dependence, cigarettes, uncomplicated; F12.10 Cannabis abuse, uncomplicated; Z90.710 Acquired absence of both cervix and uterus; Z98.51 Tubal ligation status; Y04.2XXA Assault by strike against or bumped into by another person, initial encounter; Y92.9 Unspecified place or not applicable; Y93.89 Activity, other specified